=== PATIENT | female | born 1940 | race Caucasian/White ===

== ENCOUNTER 2016-09-05 08:28 | Day surgery (SDC) | payer MEDICARE, OTHER ==
--- NOTE | ~2016-09-05 | EGD ---
EGD REPORT [facility] [address] [place]. [place] [address] NAME: CARLEY OREILLY GABY : [birth year] [place] [facility] [place] [id number] AGE: 75 ADM/REG DATE : 09/05/16 MR#: [id number] REPORT SERV DATE: 09/05/16 DICTATED BY: IDRIS HAKW DATE: 09/05/16 REPORT STATUS : Draft TRANSCRIBED BY: [facility] DATE: 09/05/16 Endoscopy Center Patient Name: Carley Oreilly Date of : 1940 Attending MD: IDRIS HAWK MD Procedure Date No Time: 09/05/2016 Procedure: Upper GI endoscopy Indications: Iron deficiency anemia Referring MD: Kelly Ortega Medicines: See the Anesthesia note for documentation of the administered medications Complications: No immediate complications. Procedure: Pre-Anesthesia Assessment: - ASA Grade Assessment: IV - A patient with severe systemic disease that is a constant threat to life. After obtaining informed consent, the endoscope was passed under direct vision. Throughout the procedure, the patient's blood pressure, pulse, and oxygen saturations were monitored continuously. The GIF [id number] was introduced through the mouth, and advanced to the second part of duodenum. The upper GI endoscopy was accomplished without difficulty. The patient tolerated the procedure well. Findings: The 2nd part of the duodenum was normal. Biopsies were taken with a cold forceps for histology. Multiple 5 mm sessile polyps were found in the gastric antrum. Biopsies were taken with a cold forceps for histology. The cardia and gastric fundus were normal on retroflexion. A small hiatus hernia was present. Impression: - Normal 2nd part of the duodenum. Biopsied. - Multiple gastric polyps. Biopsied. - Hiatus hernia. Recommendation: - Patient has a contact number available for emergencies. The signs and symptoms of potential delayed complications were discussed with the patient. Return to normal activities tomorrow. Written discharge instructions were provided to the patient. - Regular diet. - Continue present medications. - FOR YOUR BIOPSY RESULTS: Please go to [email or web address] and register to receive your EGD REPORT [address] [address] NAME: CARLEY OREILLY OCTOBER : [birth year] [place] [facility] [place] [id number] AGE: 75 ADM/REG DATE : 09/05/16 MR#: [id number] REPORT SERV DATE: 09/05/16 DICTATED BY: IDRIS HAWK DATE: 09/05/16 REPORT STATUS : Draft TRANSCRIBED BY: [email or web address] DATE: 09/05/16 results via the portal. Your biopsy results will be posted there in about 7 to 10 days. IF you do not see result in 10 days, call office. Procedure Code(s): --- Professional --- 36680, Esophagogastroduodenoscopy, flexible, transoral; with biopsy, single or multiple Diagnosis Code(s): --- Professional --- K31.7, Polyp of stomach and duodenum K44.9, Diaphragmatic hernia without obstruction or gangrene D50.9, Iron deficiency anemia, unspecified CPT copyright 2013 [employer]. All rights reserved. The codes documented in this report are preliminary and upon certified professional coder review may be revised to meet current compliance requirements. Idris Hawk MD IDRIS HAWK MD 09/05/2016 10:51 AM This report has been signed electronically. Number of Addenda: 0 Note Initiated On: 09/05/2016 10:39 AM Scope Withdrawal Time 0 hours 0 minutes 0 seconds [id number] [place] [address]
--- NOTE | ~2016-09-05 | EGD ---
EGD REPORT [facility] [address] [place]. [place] [address] NAME: CARLEY OREILLY OCTOBER : 40 STATUS : REG [facility] [place] PAT#: [id number] AGE: 75 ADM/REG DATE : 09/05/16 MR#: [id number] REPORT SERV DATE: 09/05/16 DICTATED BY: IDRIS HAWK DATE: 09/05/16 REPORT STATUS : Draft [facility]: [facility] DATE: 09/05/16 Endoscopy Center Patient Name: Carley Oreilly Date of : 1940 Attending MD: IDRIS HAWK MD Procedure Date No Time: 09/05/2016 Procedure: Colonoscopy Indications: Iron deficiency anemia, Last colonoscopy: July 2012 Referring MD: Kelly Ortega Medicines: See the Anesthesia note for documentation of the administered medications Complications: No immediate complications. Procedure: Pre-Anesthesia Assessment: - ASA Grade Assessment: IV - A patient with severe systemic disease that is a constant threat to life. After I obtained informed consent, the scope was passed under direct vision. Throughout the procedure, the patient's blood pressure, pulse, and oxygen saturations were monitored continuously. The [id number] was introduced through the anus and advanced to the terminal ileum, with identification of the appendiceal orifice and IC valve. The colonoscopy was performed without difficulty. The patient tolerated the procedure well. The quality of the bowel preparation was adequate. Findings: The perianal and digital rectal examinations were normal. Diverticula were found in the sigmoid colon. Internal hemorrhoids were found during retroflexion and were medium-sized. A sessile polyp was found in the ascending colon. The polyp was small in size. The polyp was removed with a cold biopsy forceps. Resection and retrieval were complete. Two sessile polyps were found in the transverse colon. The polyps were small in size. These polyps were removed with a cold biopsy forceps. Resection and retrieval were complete. A sessile polyp was found in the sigmoid colon. The polyp was 8 mm in size. The polyp was removed with a cold snare. Resection and retrieval were complete. A sessile polyp was found in the rectum. The polyp was small in size. The polyp was removed with a cold biopsy forceps. Resection and retrieval were complete. Impression: - Diverticulosis in the sigmoid colon. - Internal hemorrhoids. EGD REPORT [address] [place]. [address] NAME: CARLEY OREILLY OCTOBER : [birth year] STATUS : REG [facility]#: [id number] AGE: 75 ADM/REG DATE : 09/05/16 MR#: [id number] REPORT SERV DATE: 09/05/16 DICTATED BY: IDRIS HAWK DATE: 09/05/16 REPORT STATUS : Draft TRANSCRIBED BY: [employer] DATE: 09/05/16 - One small polyp in the ascending colon. Resected and retrieved. - Two small polyps in the transverse colon. Resected and retrieved. - One 8 mm polyp in the sigmoid colon. Resected and retrieved. - One small polyp in the rectum. Resected and retrieved. Recommendation: - Continue present medications. - FOR YOUR BIOPSY RESULTS: Please go to [email or web address] and register to receive your results via the portal. Your biopsy results will be posted there in about 7 to 10 days. IF you do not see result in 10 days, call office. - Follow up with Dr Hawk or his nurse practitioner in 4 weeks - Repeat colonoscopy for surveillance based on pathology results. - Patient has a contact number available for emergencies. The signs and symptoms of potential delayed complications were discussed with the patient. Return to normal activities tomorrow. Written discharge instructions were provided to the patient. - Regular diet. Procedure Code(s): --- Professional --- 24994, Colonoscopy, flexible, proximal to splenic flexure; with removal of tumor(s), polyp(s), or other lesion(s) by snare technique 33514, 59, Colonoscopy, flexible, proximal to splenic flexure; with biopsy, single or multiple Diagnosis Code(s): --- Professional --- K64.8, Other hemorrhoids K57.30, Diverticulosis of large intestine without perforation or abscess without bleeding K62.1, Rectal polyp D12.5, Benign neoplasm of sigmoid colon D12.3, Benign neoplasm of transverse colon D12.2, Benign neoplasm of ascending colon D50.9, Iron deficiency anemia, unspecified CPT copyright 2013 [employer]. All rights reserved. The codes documented in this report are preliminary and upon endodontic assistant review may be revised to meet current compliance requirements. EGD REPORT [facility] [address] [address] NAME: CARLEY OREILLY OCTOBER : 40 STATUS : REG [facility] [place] PAT#: [id number] AGE: 75 ADM/REG DATE : 09/05/16 MR#: [id number] REPORT SERV DATE: 09/05/16 DICTATED BY: IDRIS HAWK DATE: 09/05/16 REPORT STATUS : Draft TRANSCRIBED BY: [employer] DATE: 09/05/16 Idris Hawk MD IDRIS HAWK MD 09/05/2016 11:11 AM This report has been signed electronically. Number of Addenda: 0 Note Initiated On: 09/05/2016 10:50 AM Scope Withdrawal Time 0 hours 12 minutes 15 seconds [facility] [place] [id number]
[~2016-09-05 08:28] MED LIST: ADVAIR100 INH; ALLEGRA180 PO; ANSAID100 MG OR; ASAB PO; AT10 PO; BENADRYL 50 MG50 MG PO; CARDCD180 PO; CARTIA XT180 MG/24 PO; COREG3 PO; DELSYM30 MG/5 ML OR; FERROUS SULF325 M1 PO; FLOVENT44 INH; FLURBIPROFEN100 MG PO; KLOR-CON 1010 MEQ PO; L20 PO; LEVSINTAB PO; LISINOPRIL40 MG PO; LOP25 PO; MAGOX4 PO; NEUR100 PO; NORV10 PO; P10 PO; PEP20 PO; PROAIR HFA INH; PROTONIX PO; REFRES1; SINGULAIR1 PO; SPIRIVA INH; SYMAX-SL0.125 MG PO; SYMBICORT 160/41 INH INH; VITAMIN B-121000 MC1 SL; VITAMIN D PO; Z100 PO; Z300 PO; ZOCOR10 PO; ZYRTEC ALLGY10 MG PO; [UNRECOGNIZED DRUG - OTHER] OR; [UNRECOGNIZED DRUG - OTHER] PO
== END 2016-09-05 23:59 | disposition home or self-care (01) ==
LOC: DMU 08:28
PROVIDERS: Internal Medicine Gastroenterology
PROC: 0DBL8ZZ Excision of Transverse Colon, Via Natural or Artificial Opening Endoscopic (ICD-10-PCS; 2016-09-05)
PROC: 0DB68ZX Excision of Stomach, Via Natural or Artificial Opening Endoscopic, Diagnostic (ICD-10-PCS; 2016-09-05)
PROC: 0DBK8ZZ Excision of Ascending Colon, Via Natural or Artificial Opening Endoscopic (ICD-10-PCS; principal; 2016-09-05 10:00)
PROC: 0DBP8ZZ Excision of Rectum, Via Natural or Artificial Opening Endoscopic (ICD-10-PCS; 2016-09-05 10:00)
PROC: 0DBN8ZZ Excision of Sigmoid Colon, Via Natural or Artificial Opening Endoscopic (ICD-10-PCS; 2016-09-05 10:00)
DX: K31.7 Polyp of stomach and duodenum (principal); D12.2 Benign neoplasm of ascending colon; D12.3 Benign neoplasm of transverse colon; D12.5 Benign neoplasm of sigmoid colon; D12.8 Benign neoplasm of rectum; K64.8 Other hemorrhoids; K57.30 Diverticulosis of large intestine without perforation or abscess without bleeding; D50.9 Iron deficiency anemia, unspecified; K44.9 Diaphragmatic hernia without obstruction or gangrene; Z86.718 Personal history of other venous thrombosis and embolism; I10 Essential (primary) hypertension; J45.909 Unspecified asthma, uncomplicated; G47.33 Obstructive sleep apnea (adult) (pediatric); E66.01 Morbid (severe) obesity due to excess calories; Z88.0 Allergy status to penicillin; Z91.041 Radiographic dye allergy status; Z79.899 Other long term (current) drug therapy; Z79.82 Long term (current) use of aspirin
CPT/HCPCS: 88305; A9270-GY